=== PATIENT | male | born 1960 | race Caucasian/White ===

== ENCOUNTER 2018-07-09 10:11 | Day surgery (SDC) | payer OTHER ==
[2018-07-09] MEDS ORDERED: PROPOFOL 20 ML ×2 (11:28→11:55)
[2018-07-09] MEDS ORDERED: FENTAnyl 50 MCG/ML VIAL (11:28)
== END 2018-07-09 12:58 | disposition home or self-care (01) ==
LOC: GIL 10:11
DX: Z12.11 Encounter for screening for malignant neoplasm of colon (principal); D12.3 Benign neoplasm of transverse colon; K64.4 Residual hemorrhoidal skin tags
CPT/HCPCS: 45380; 88305